=== PATIENT | male | born 1970 | race Caucasian/White ===

== ENCOUNTER 2019-09-27 00:16 | Day surgery (SDC) | payer BC, SELFPAY ==
[2019-09-22 11:44] VITALS: BMI 34.6
[2019-09-27 09:33] VITALS: BP 147/84; PULSE 83; RESP 18; TEMP 36.8; O2SAT 95
[2019-09-27] MEDS: LACTATED RINGERS 1,000 ML 150 ML IV CONT (09:49)
[2019-09-27] MEDS: GLYCOPYRROLATE INJ (*SP) 0.2 MG/ML VIAL IV PUSH (09:52)
--- NOTE | 2019-09-27 09:52 | WPDANESEPPF ---
Anes - Initial Pre Proc Eval Procedure: Operation Date: 09/27/19 10:30 Proposed Procedures p Screening Colonoscopy - Ravi Cortez MD Date/Time: 09/27/19 09:52 Surgeon: Ravi Cortez MD Pre Op Diagnosis: Neoplasm Screening Patient Data Age: 49 Gender: M Height: 5 ft 11 in Weight: 112.9 kg Last Vital Signs Temp 36.8 C 09/27/19 09:33 Pulse 83 09/27/19 09:33 Resp 18 09/27/19 09:33 BP 147/84 H 09/27/19 09:33 Pulse Ox 95 09/27/19 09:33 Allergies Allergy/AdvReac Type Severity Reaction Status Date / Time No Known Allergies Allergy Mild Verified 09/27/19 09:30 Home Medications Medication Instructions Recorded Confirmed Type fluticasone propionate 50 2 spray NASAL DAILY 08/10/19 09/22/19 History mcg/actuation nasal spray,suspension metformin 500 mg PO DAILY PRN 09/22/19 09/27/19 History Patient hx anesthesia problems: none Family hx anesthesia problems: none PMFSH Past Medical History Medical History (Updated 09/27/19 @ 09:53 by Isael Goff MD) Asthma Family History Family History Mother Patient's mother is Social History Social History Smoking status: Never smoker Alcohol intake: current Anes - Eval Final PreProcedure Day of Procedure 09/27/19 09:52 Patient weight: obese Heart: regular rate and rhythm Lungs: clear to auscultation Airway: Mallampati scale class II Neurological: alert and oriented Last oral intake: >/= 8 hours ASA classification: III Emergent: no Anesthetic plan: proceed Anesthesia type and monitoring: general GIVS and standard monitoring Informed Consent: The patient's anesthetic plan and its attendant risks and benefits were discussed with the patient/family/POA. Questions were solicited and answers provided to the satisfaction of the patient/family/POA.
[2019-09-27] MEDS: PHENYLEPHRINE 1,000 MCG/10 ML SYRINGE 200 MCG IV PUSH (09:53)
[2019-09-27 09:57] LABS: Glucose Point of Care 98 (65-105)
--- NOTE | 2019-09-27 10:34 | PM.HPGS ---
History of Present Illness History of Present Illness Consent: Risks, benefits, and alternatives have been discussed and questions answered. Patient agrees to proceed with procedure. Chief complaint: Neoplasm Screening Narrative: Asif Byrd is a 49 year old male here for his first screening colonoscopy. Review of Systems Constitutional: Constitutional: Denies headache(s) and Denies weakness Eyes: Eyes: Denies blurry vision ENT: Reports Normal hearing present, Denies headache(s) and Denies neck pain Cardiovascular: Cardiovascular: Denies chest pain and Denies dyspnea Respiratory: Respiratory: Denies dyspnea Gastrointestinal: Gastrointestinal: Reports no additional gastrointestinal complaints Genitourinary: Genitourinary: Denies dysuria Musculoskeletal: Musculoskeletal: Denies neck pain Integumentary/Breasts: Skin/Breast: Denies dry skin Neurologic: Reports Normal hearing present, Denies headache(s) and Denies weakness Psychiatric: Psychiatric: Denies anxiety Endocrine: Endocrine: Denies change in body appearance Hematologic/Lymphatic: Hematologic/Lymphatic: Denies easy bleeding Allergic/Immunologic: Allergic/Immunologic: Denies urticaria PMFSH Past Medical History Medical History (Updated 09/27/19 @ 10:35 by Ravi Cortez MD) Asthma Colon cancer screening Family History Family History Mother Patient's mother is Social History Social History Smoking status: Never smoker Alcohol intake: current Meds Home Medications and Allergies Home Medications Medication Instructions Recorded Confirmed Type fluticasone propionate 50 2 spray NASAL DAILY 08/10/19 09/22/19 History mcg/actuation nasal spray,suspension metformin 500 mg PO DAILY PRN 09/22/19 09/27/19 History Allergies Allergy/AdvReac Type Severity Reaction Status Date / Time No Known Allergies Allergy Mild Verified 09/27/19 09:30 Vital Signs Vital Signs - 24 hr 09/27/19 09:33 Temperature 98.3 F Pulse Rate 83 Respiratory Rate 18 Blood Pressure 147/84 H Pulse Oximetry 95 Exam Const: General: comfortable and no acute distress HENMT: General nose exam: Normal nares present Eyes: General: appearance normal, both eyes and all related structures Neck: Neck: no JVD Resp: Auscultation: clear to auscultation bilaterally Cardio: Rate: regular rate Rhythm: regular rhythm GI: Inspection: non-distended GI Palp: Yes Soft to palpation Skin: General skin exam: normal color Neuro: General: gait normal Speech: normal speech Extrem: General: normal to inspection Psych: Mental Status: mental status grossly normal Assessment and Plan Assessment and plan (1) Colon cancer screening: Code(s): Z12.11 - Encounter for screening for malignant neoplasm of colon Status: Acute Assessment and Plan: will proceed with colonoscopy (2) Essential (primary) hypertension: Code(s): I10 - Essential (primary) hypertension Status: Acute
[2019-09-27 10:59] VITALS: BP 98/61; PULSE 70; RESP 18; O2SAT 96
[2019-09-27 11:09] VITALS: BP 130/81; PULSE 72; RESP 20; O2SAT 98
[2019-09-27 11:19] VITALS: BP 137/80; PULSE 68; RESP 18; O2SAT 98
== END 2019-09-27 11:35 | disposition home or self-care (01) ==
PROVIDERS: PCP Family Medicine; Visit Provider Internal Medicine Gastroenterology
PROC: 0DJD8ZZ Inspection of Lower Intestinal Tract, Via Natural or Artificial Opening Endoscopic (ICD-10-PCS; CPT 45378; principal; 2019-09-27 10:30)
DX: Z12.11 Encounter for screening for malignant neoplasm of colon (principal); K63.5 Polyp of colon; K57.30 Diverticulosis of large intestine without perforation or abscess without bleeding; J45.909 Unspecified asthma, uncomplicated; E66.9 Obesity, unspecified; Z68.34 Body mass index [BMI] 34.0-34.9, adult
CPT/HCPCS: 45385; 88305; J2370; J2704; J7120

== ENCOUNTER → 2021-09-09 11:53 | Outpatient (CLI) | payer BC, SELFPAY ==
--- NOTE | ~2021-09-09 | CT_ITS ---
EXAMINATION: CT sinus wo con DATE: 09/09/2021 12:21 INDICATION: Chronic maxillary sinusitis TECHNIQUE: Computed tomography (CT) of the paranasal sinuses was performed without intravenous contra st. The dose-length product was 275.58 mGy-cm. Automated exposure control and iterative reconstructio n technique were employed. COMPARISON: None FINDINGS: There is mucosal thickening of the maxillary and ethmoid sinuses. No air-fluid levels. No s ignificant mucoperiosteal reaction. No depressed skull fractures. IMPRESSION: 1. Mild sinus disease. Reviewed, dictated and finalized at location B. OGRAMMETRIC TECH IMPRESSION: 1. Mild sinus disease.
== END ==
PROVIDERS: Visit Provider Otolaryngology
DX: J32.0 Chronic maxillary sinusitis (principal)
CPT/HCPCS: 70486

== ENCOUNTER 2021-10-09 09:35 | Outpatient (CLI) | payer BC, SELFPAY ==
--- NOTE | 2021-10-09 09:46 | ECG_ITS ---
Measurements Intervals [place] Rate: 80 P: 54 OK: 177 QRS: 5 QRSD: 89 T: 37 QT: 340 QTc: 393 Interpretive Statements SINUS RHYTHM NORMAL ECG NO PREVIOUS ECG AVAILABLE FOR COMPARISON Electronically Signed On 10-09-2021 14:07:41 CDT by Wilner Reis M.D.
[2021-10-09 10:22] LABS: Anion Gap 6 mmol/L (8-16); Blood Urea Nitrogen 19 mg/dL (9-20); Calcium 8.3 mg/dL (8.4-10.2); Carbon Dioxide 27 mmol/L (22-30); Chloride 104 mmol/L (98-107); Estimated Glomerular Filt Rate > 60; Glucose 133 mg/dL (65-110); Sodium 137 mmol/L (137-145)
== END 2021-10-09 09:36 | disposition home or self-care (01) ==
LOC: ANHSURGERY 09:41
PROVIDERS: Anesthesiology; PCP Family Medicine; Visit Provider Otolaryngology
DX: Z01.818 Encounter for other preprocedural examination (principal); R73.03 Prediabetes
CPT/HCPCS: 36415; 80048; 93005

== ENCOUNTER 2021-10-14 02:04 | Day surgery (SDC) | payer BC, SELFPAY ==
[2021-10-03 13:10] VITALS: BMI 35.5
--- NOTE | 2021-10-03 13:15 | PC.NURSE ---
Report to the Outpatient Waiting Room, entrance under the green pavilion located off [facility], at time _0600_ on date _10-14-21_. OR Time: __. - You and your visitor will be asked a series of questions to screen for COVID 19 for your protection. - A mask is required within the hospital. Preoperative COVID Testing Requirements: No COVID Test needed if: (proof is required; if not received patient will have Rapid Test prior to entry) - Patient has received COVID Vaccine at least 14 days prior to procedure date or - Patient has positive COVID test result within last 90 days of surgery date. COVID Test needed if above criteria is not met If not COVID vaccinated a COVID test must be conducted within 72 hours of surgery and patient is asked to isolate self from time of testing until procedure. You will go to the [facility] for your COVID testing. The [facility] site is located at the corner of [address] [facility]. You will only be called if COVID results are positive and your surgeon may reschedule your elective surgery date. Patients may have clear liquids (water, carbonated beverages, clear teas, apple juice) until 3 hours prior to surgery with a maximum of 20 ounces. - No food from midnight until time of surgery - Infants may have breast milk until 4 hours before surgery, infant formula 6 hours prior to surgery. - Children will be allowed to drink immediately following surgery. If applicable, please bring a bottle or sippy cup to assist with drinking. Juice, water, soda, and popsicles are readily available. For infants on formula, please bring formula the day of surgery. Pacifiers are allowed. Take the following medications with a SIP of water the morning of surgery: Medications to discontinue per physician Date to take last dose Please no make-up, nail occitan, hairspray, perfume, deodorant, or body powder the day of surgery. No jewelry (including any body piercings) or valuables the day of surgery, leave them at home. Please take a shower or bath the night before, or the morning of, surgery with an antibacterial soap. Wear comfortable, loose fitting clothing. Children are encouraged to wear pajamas. - Jewelry must be removed prior to entering the operating room. Rings and piercings that are not removed may be cut off. - The hospital will not accept responsibility for valuables. - Please leave all valuables, including medications, at home the day of surgery. If you are going home after surgery, a licensed armor reconnaissance vehicle driver must drive you home. - NO public transportation without another adult. - We recommend that an adult stay with you for 24 hours following discharge. - We also recommend that you do not drive, make important decision, drink alcoholic beverages, or take any drugs that were not prescribed by your health care provider for at least 24 hours after your discharge time. For Pediatric surgeries, we recommend two adults accompany the child home (only one inside the building at this time). One visitor will be allowed to accompany the patient into the hospital. Patients visitor will be instructed to remain with patient at all times or leave the building. We will allow the visitor to come back to the postoperative area when patient is ready. Follow any additional instructions given to you from your surgeon. Telephone instructions given to __Patient___and asked if any additional questions and then verbalized understanding. Patient advised to call surgeon office or pre surgery nurse liaison [phone] if any additional questions.
[2021-10-14] VITALS (9 sets, daily range): BP systolic 139–162; BP diastolic 85–96; PULSE 61–87; RESP 10–20; TEMP 36.3–36.9; O2SAT 93–98
[2021-10-14] MEDS: ACETAMINOPHEN 500 MG TABLET 1000 MG PO (07:57)
--- NOTE | 2021-10-14 08:16 | P.PNAN_ITS ---
Anes - Initial Pre Proc Eval Procedure: Operation Date: 10/14/21 09:30 Proposed Procedures p Fusion Guided Bilateral Ethmoidectomy, Bilateral Maxillary Antrostomy, Bilateral Turbinate Reduction, - Jules Ahmadi MD s Septoplasty - Jules Ahmadi MD Date/Time: 10/14/21 08:16 Surgeon: Jules Ahmadi MD Pre Op Diagnosis: chronic sinusitis Patient Data Age: 51 Gender: M Height: 1.8 m Weight: 115.5 kg Allergies Allergy/AdvReac Type Severity Reaction Status Date / Time No Known Allergies Allergy Mild Verified 10/14/21 07:59 Home Medications Medication Instructions Recorded Confirmed Type fluticasone propionate 50 2 spray NASAL DAILY 08/10/19 10/14/21 History mcg/actuation nasal spray,suspension metformin 500 mg tablet 500 mg PO DAILY #90 tablet 04/01/21 10/14/21 Rx loratadine 10 mg PO DAILY 10/03/21 10/14/21 History Patient hx anesthesia problems: none Family hx anesthesia problems: none Results Review: All pre-operative results and documents have been reviewed as part of the pre-operative evaluation. [facility] Past Medical History Medical History (Updated 10/14/21 @ 08:17 by Harjit Bedolla MD) Asthma Colon cancer screening Diabetes Mixed hyperlipidemia Family History Family History Mother Patient's mother is Social History Social History Smoking status: Never smoker Alcohol intake: current Living arrangements: with family Spiritual care concerns: No Anes - Eval Final PreProcedure Day of Procedure 10/14/21 08:16 Patient weight: obese Heart: regular rate and rhythm Lungs: clear to auscultation and normal air movement Airway: Mallampati scale class II Neurological: alert and oriented Last oral intake: >/= 8 hours ASA classification: III Emergent: no Anesthetic plan: proceed Anesthesia type and monitoring: general ETT Results Review: All pre-operative results and documents have been reviewed as part of the pre-operative evaluation. Informed Consent: The patient's anesthetic plan and its attendant risks and benefits were discussed with the patient/family/POA. Questions were solicited and answers provided to the satisfaction of the patient/family/POA.
[2021-10-14] MEDS: LACTATED RINGERS 1,000 ML 30 ML IV CONT ×2 (08:20→11:15)
[2021-10-14 08:24] LABS: Glucose Point of Care 115 mg/dl (65-105)
--- NOTE | 2021-10-14 08:41 | WPDHPUPDATE1 ---
History and Physical Update Update Date/Time: 10/14/21 08:41 History and Physical has been reviewed, including an updated exam of the patient. There are NO changes in the patient's condition. Risks, benefits, and alternatives have been discussed and questions answered. Patient agrees to proceed with procedure.
[2021-10-14] MEDS: ceFAZolin 2 GM/D5W 50 ML 2 GM/50 ML BAG IVPB (09:15)
[2021-10-14] MEDS: OXYMETAZOLINE HCL 0.05% NAS 15 ML BTL (*BKC) 1 SPRAY NASAL (09:48)
--- NOTE | 2021-10-14 11:19 | W.PM.PROC2 ---
Procedure Note - Detailed Date of Procedure 10/14/21 Pre-op Diagnosis chronic sinusitis , deviated septum Post-op Diagnosis Same Procedure Performed Bilateral maxillary antrostomy, ethmoidectomy, septoplasty and turbinoplasty Surgeon Jules Ahmadi MD Anesthesia General Indications Chronic sinusitis, deviated septum Findings Severe left septal deviation, bilateral nasal polyps Description of Procedure On the date of procedure the patient was met in the preoperative area and risk and benefits of the procedure reviewed with the patient as documented in the H&P and they elected to proceed with surgery. Patient was brought back to the operating room by the anesthesia team and underwent general endotracheal anesthesia. Once an adequate plane of anesthesia was obtained a timeout was performed to assure the patient identification the patient here to be performed were correct. They were.The patient was then prepped and draped in the normal fashion for endoscopic sinus surgery. The diffusion image guidance system was calibrated and used for the entire case. Afrin-soaked pledgets were placed in the nasal cavities bilaterally. The entire case was performed under endoscopic visualization. The left side was narrowed due to septal deviation.? Thus, septoplasty was required.? A left hemitransfixion incision was made in the left caudal septum and a mucoperichondrial flap was elevated in the usual fashion. The flap was elevated under endoscopic visualization and the remainder of the case was performed with endoscopic assistance. Using a D-knife, an incision was made through the cartilaginous septum with care to preserve the appropriate caudal and dorsal ?L-strut? of cartilage. The cartilage was then disarticulated from the bony-cartilaginous junction and the deviated cartilage was removed. Further deviated bone and cartilage was removed from the maxillary crest and posterior bony septum with care to avoid injury to the mucoperichondrial flap using a combination of dissection and Aguila-Gabriela forceps. Once this was completed, the hemitransfixion incision was closed using simple interrupted 4-0 chromic suture. A quilting stitch to reapproximate the mucoperichondrial flaps was then placed using 4-0 plain gut suture on a Jayy needle. 1% lidocaine with 1:100,000 epinephrine was then injected into the root of the middle turbinate and lateral nasal wall. Attention was first directed towards the left side. The middle turbinate was medialized and the osteomeatal complex was identified with a daryl probe. Using a 90 degree backbiter, the uncinate process was reflected anteriorly and removed using a combination of sharp and powered dissection. The maxillary antrostomy was then created and widened by identifying the natural ostia and opening the sinus with straight easton-cut forceps, backbiter, and microdebrider. Polyp tissue encountered was removed with microdebrider. Continuing with the microdebrider, the anterior ethmoid bulla was opened. Careful dissection was carried out posteriorly, through the basal lamella and posterior ethmoid cells until the sphenoid rostrum was identified. Next, the right maxillary antrostomy and ethmoidectomywere carried out in identical fashion with findings of gross polyp disease throughout. No clinical evidence of CSF throughout the case.? With all sinuses opened and no remaining polyp disease appreciated, nasopore packing was placed in the ethmoid acvities bilaterally. Hemostasis was ensured. Lastly, the bilateral inferior turbinates were reduced submucosally using 2mm microdebrider and then outfractured with a sayer elevator. This significantly opened the airway. Leija splints were then placed to secure the septum in the midline.? At this point, the procedure was concluded. Care the patient was transferred back to the anesthesia team and the patient was awoke in the operating room and transferred back to the PACU in stable condition. Jules Ahmadi M.D. Es
[2021-10-14 11:25] LABS: Glucose Point of Care 153 mg/dl (65-105)
[2021-10-14] MEDS: fentaNYL CITRATE INJ (*CRX) 100 MCG/2 ML VIAL 25 MCG IV PUSH ×3 (11:35→12:11)
[2021-10-14] MEDS: oxyCODONE HCL (*CRX) 5 MG TAB IR PO (12:54)
== END 2021-10-14 13:54 | disposition home or self-care (01) ==
PROVIDERS: PCP Family Medicine; Visit Provider Otolaryngology
PROC: (CPT 31256; principal; 2021-10-14 09:30)
PROC: (CPT 30520; 2021-10-14 09:30)
DX: J32.9 Chronic sinusitis, unspecified (principal); J34.2 Deviated nasal septum; J33.9 Nasal polyp, unspecified; E11.9 Type 2 diabetes mellitus without complications; E78.5 Hyperlipidemia, unspecified; J45.909 Unspecified asthma, uncomplicated; Z79.84 Long term (current) use of oral hypoglycemic drugs; E66.9 Obesity, unspecified; Z68.36 Body mass index [BMI] 36.0-36.9, adult
CPT/HCPCS: 31256; 31255; 30140; 61782; 30520; 36415; 80048; 82948; 93005; A9270; J0330; J0690; J1100; J2250; J2405; J2704; J3010; J7120

== ENCOUNTER 2024-06-28 13:50 | Outpatient (CLI) | payer OTHER, SELFPAY ==
--- NOTE | ~2024-06-28 | XR_ITS ---
EXAMINATION: XR chest 2V Exam Date/Time: 06/28/2024 13:54 IRRIGATION LABORER HISTORY: R05.9 - Cough, unspecified Comparison: 05/02/2008. RESULT: Lines, tubes, and devices: None. Lungs and pleura: Nodular appearing density in the right lower lung. Adjacent overlapping right lowe r lung scar. Cardiomediastinal silhouette: Possible right hilar lymph node enlargement. Other: No acute osseous or upper abdominal finding. IMPRESSION: Nodular opacity in the right lower lung, presumably representing a focus of infection. This finding s hould be followed after appropriate therapy/time interval to an short resolution and exclude a pulmon freya nodule. Possible right hilar lymphadenopathy. Reviewed, dictated and finalized at location K. GATION LABORER IMPRESSION: Nodular opacity in the right lower lung, presumably representing a focus of inf ection. This finding should be followed after appropriate therapy/time interval to an short resolution and exclude a pulmonary nodule. Possible right hilar lymphadenopathy.
== END 2024-06-28 13:51 | disposition home or self-care (01) ==
LOC: GOSHIMG 13:51
PROVIDERS: PCP Family Medicine; Visit Provider Nurse Practitioner Family
DX: R05.9 Cough, unspecified (principal)
CPT/HCPCS: 71046

== ENCOUNTER 2024-12-19 00:57 | Day surgery (SDC) | payer OTHER, SELFPAY ==
[2024-12-19 09:30] VITALS: BP 126/79; PULSE 82; RESP 20; TEMP 35.9; O2SAT 97; BMI 34.7
[2024-12-19] MEDS: LACTATED RINGERS 1,000 ML 150 ML IV CONT (09:55)
[2024-12-19 09:57] LABS: Glucose Point of Care 137 mg/dl (65-105)
--- NOTE | 2024-12-19 10:09 | P.PNAN_ITS ---
Anes - Initial Pre Proc Eval Procedure: Operation Date: 12/19/24 11:00 Proposed Procedures p Colonoscopy - Ravi Cortez MD Date/Time: 12/19/24 10:09 Surgeon: Ravi Cortez MD Pre Op Diagnosis: Personal Hx of colon polyps Patient Data Age: 54 Gender: M Height: 1.8 m Weight: 112.9 kg Last Vital Signs Temp 35.9 C L 12/19/24 09:30 Pulse 82 12/19/24 09:30 Resp 20 12/19/24 09:30 BP 126/79 12/19/24 09:30 Pulse Ox 97 12/19/24 09:30 O2 Del Method Room Air 12/19/24 09:30 Allergies Allergy/AdvReac Type Severity Reaction Status Date / Time atorvastatin AdvReac Mild Nausea Verified 12/19/24 09:40 Home Medications ?Medication ?Instructions ?Recorded ?Confirmed ?Type cholecalciferol (vitamin D3) 125 125 mcg PO DAILY #30 caps 01/26/23 12/19/24 Rx mcg (5,000 unit) capsule rosuvastatin 5 mg tablet 5 mg PO DAILY #90 tabs 03/11/24 12/19/24 Rx metformin 500 mg tablet,extended 500 mg PO BID #180 tabs 03/15/24 12/19/24 Rx release 24 hr vitamin B complex 1 tablet PO DAILY 06/28/24 12/19/24 History Laboratory Tests 12/19/24 09:47 POC Capillary Glucose 137 H mg/dl (65-105) Patient hx anesthesia problems: none Family hx anesthesia problems: none Results Review: All pre-operative results and documents have been reviewed as part of the pre- operative evaluation. [facility] Past Medical History Medical History Diabetes Colon cancer screening Asthma Mixed hyperlipidemia Surgical History Surgical History History of nasal septoplasty Family History Family History Mother Patient's mother is Social History Social History Smoking status: Never smoker Alcohol intake: current Lack of Transportation: No Lack of Food: Sometimes True Current Housing: I Have Housing Concerned About Future Housing: No Difficulty Paying Gas/Electric Bills: No Difficulty Paying for Meds: No Currently Unemployed: No Education: Bachelor's Degree Difficulty w/ Childcare or Family Care: No Living arrangements: with family Spiritual care concerns: No Anes - Eval Final PreProcedure Day of Procedure 12/19/24 10:09 Patient weight: obese Heart: regular rate and rhythm Lungs: clear to auscultation Airway: Mallampati scale class II Neurological: alert and oriented Last oral intake: >/= 8 hours ASA classification: III Emergent: no Anesthetic plan: proceed Anesthesia type and monitoring: general GIVS and standard monitoring Results Review: All pre-operative results and documents have been reviewed as part of the pre- operative evaluation. Informed Consent: The patient's anesthetic plan and its attendant risks and benefits were discussed with the patient/family/POA. Questions were solicited and answers provided to the satisfaction of the patient/family/POA.
--- NOTE | 2024-12-19 10:20 | PM.HPGS ---
History of Present Illness History of Present Illness Consent: Risks, benefits, and alternatives have been discussed and questions answered. Patient agrees to proceed with procedure. Chief complaint: Personal Hx of colon polyps Narrative: Asif Byrd is a 54 year old male with colon polyp in 2019 Review of Systems Review of Systems: All systems reviewed & are unremarkable except as noted in HPI and below PMFSH Past Medical History Medical History (Updated 12/19/24 @ 10:21 by Ravi Cortez MD) Colon polyp Diabetes Colon cancer screening Asthma Mixed hyperlipidemia Surgical History Surgical History History of nasal septoplasty Family History Family History Mother Patient's mother is Social History Social History Smoking status: Never smoker Alcohol intake: current Lack of Transportation: No Lack of Food: Sometimes True Current Housing: I Have Housing Concerned About Future Housing: No Difficulty Paying Gas/Electric Bills: No Difficulty Paying for Meds: No Currently Unemployed: No Education: Bachelor's Degree Difficulty w/ Childcare or Family Care: No Living arrangements: with family Spiritual care concerns: No Meds Home Medications and Allergies Home Medications ?Medication ?Instructions ?Recorded ?Confirmed ?Type cholecalciferol (vitamin D3) 125 125 mcg PO DAILY #30 caps 01/26/23 12/19/24 Rx mcg (5,000 unit) capsule rosuvastatin 5 mg tablet 5 mg PO DAILY #90 tabs 03/11/24 12/19/24 Rx metformin 500 mg tablet,extended 500 mg PO BID #180 tabs 03/15/24 12/19/24 Rx release 24 hr vitamin B complex 1 tablet PO DAILY 06/28/24 12/19/24 History Allergies Allergy/AdvReac Type Severity Reaction Status Date / Time atorvastatin AdvReac Mild Nausea Verified 12/19/24 09:40 Vital Signs Vital Signs - 24 hr 12/19/24 09:30 Temperature 96.7 F L Pulse Rate 82 Respiratory Rate 20 Blood Pressure 126/79 Pulse Oximetry 97 Oxygen Delivery Room Air Exam Const: General: comfortable and no acute distress HENMT: Face/Nose/Sinus: Normal nares present Eyes: General: appearance normal, both eyes and all related structures Neck: Neck: no JVD Resp: Auscultation: clear to auscultation bilaterally Cardio: Rate: regular rate Rhythm: regular rhythm GI: Inspection: non-distended GI Palp: Yes Soft to palpation Skin: General skin exam: normal color Neuro: General: gait normal Speech: normal speech Extrem: General: normal to inspection Psych: Mental Status: mental status grossly normal Assessment and Plan Assessment and plan (1) Colon polyp: Code(s): K63.5 - Polyp of colon Status: Acute Assessment and Plan: colonoscopy
[2024-12-19 10:40] VITALS: BP 106/59; PULSE 71; RESP 20; O2SAT 96
[2024-12-19 10:50] VITALS: BP 100/64; PULSE 69; RESP 19; O2SAT 97
[2024-12-19 11:00] VITALS: BP 111/72; PULSE 66; RESP 22; O2SAT 98
== END 2024-12-19 11:07 | disposition home or self-care (01) ==
PROVIDERS: PCP Family Medicine; Referring Provider Internal Medicine Gastroenterology; Visit Provider Internal Medicine Gastroenterology
PROC: 0DJD8ZZ Inspection of Lower Intestinal Tract, Via Natural or Artificial Opening Endoscopic (ICD-10-PCS; CPT 45378; principal; 2024-12-19 11:00)
DX: Z12.11 Encounter for screening for malignant neoplasm of colon (principal); Z86.0100 Personal history of colon polyps, unspecified; E11.9 Type 2 diabetes mellitus without complications; E66.9 Obesity, unspecified; Z68.34 Body mass index [BMI] 34.0-34.9, adult
CPT/HCPCS: 45378; 82948; J2405; J2704; J7120

== ENCOUNTER 2025-04-24 12:01 | Outpatient (CLI) | payer OTHER, SELFPAY ==
--- NOTE | ~2025-04-24 | XR_ITS ---
EXAMINATION: XR chest 2V, 04/24/2025 12:04 CDT HISTORY: R05.3 - Chronic cough COMPARISON: No comparisons available. Technique: 2 views obtained. Findings: The lungs are clear, no effusion. No pneumothorax. Heart is normal size. Mediastinal and hilar contours are within normal limits. Bony thorax no acute abnormality. Impression: No acute cardiopulmonary abnormality. Reviewed, dictated and finalized at location P. Impression: No acute cardiopulmonary abnormality.
== END 2025-04-24 12:02 | disposition home or self-care (01) ==
LOC: MICIMG 12:02
PROVIDERS: PCP Family Medicine; Visit Provider Student in an Organized Health Care Education/Training Program
DX: R05.3 Chronic cough (principal)
CPT/HCPCS: 71046